=== PATIENT | female | born 1970 | race Caucasian/White ===

== ENCOUNTER → 2023-03-30 | Outpatient (CLI) | payer BC ==
--- NOTE | 2023-03-30 10:46 | US ---
EXAMINATION TYPE: US pelvis complete transvag DATE OF EXAM: 03/30/2023 COMPARISON: NONE CLINICAL INDICATION: Female, 52 years old with history of N95.0 POSTMENOPAUSAL BLEEDING; Pt states 5 days of heavy vaginal bleeding in February TECHNIQUE: Transvaginal (TV) and Transabdominal (TA) . Transabdominal sonographic images of the pel vis were acquired. Transvaginal sonographic images were medically necessary to better assess the fol lowing anatomy: Endometrium Date of LMP: Nov 2021 EXAM MEASUREMENTS: Uterus: 7.5 x 2.9 x 3.7 cm Endometrial Stripe: 0.5 cm Right Ovary: 2.0 x 1.3 x 2.0 cm Left Ovary: 1.9 x 1.4 x 2.1 cm 1. Uterus: Anteverted Heterogeneous 2. Endometrium: Upper limits of normal for thickness, Vague area within endo with vascular stalk= 0. 5 x 0.3 x 0.7 cm ?possible polyp 3. Right Ovary: Hypoechoic lesion= 1.5 x 0.9 x 1.2 cm 4. Left Ovary: wnl 5. Bilateral Adnexa: wnl 6. Posterior cul-de-sac: wnl IMPRESSION: 1. Cannot exclude endometrial polyp. 2. Uterine myometrial heterogeneity could reflect small leiomyomatous change. 3. Probable functional right ovarian cyst.
== END | disposition home or self-care (01) ==
LOC: RADUSWWP 10:01
PROVIDERS: ATTEND Family Medicine
DX: N95.0 Postmenopausal bleeding (principal)
CPT/HCPCS: 76830; 76856

== ENCOUNTER → 2024-03-04 | Outpatient (CLI) | payer BC ==
--- NOTE | 2024-03-08 09:26 | MM ---
Reason for Exam: Screening (asymptomatic). Patient History: Menarche at age 9. Patient has no children. Postmenopausal. Maternal aunt had ovarian cancer under age 50. Risk Values: Concha 5 year model risk: 1.3%. NCI Lifetime model risk: 10.3%. Tissue Density: There are scattered areas of fibroglandular density. Findings: Analyzed By CAD. Right breast: There is no suspicious group of microcalcifications or new suspicious mass. Left breast: There is no suspicious group of microcalcifications or new suspicious mass. Overall Assessment: Negative, BI-RAD 1 Management: Screening Mammogram of both breasts in [address] [facility] will attempt to contact patient to return for supplemental views and ultrasound if indicated. Patient should continue monthly self-breast exams. A clinical breast exam by your physician is recommended on an annual basis. This exam should not preclude additional follow-up of suspicious palpable abnormalities. Note on Concha scores and lifetime risk: 1. A Concha score greater than 3% is considered moderate risk. If this is the case, consider specialist referral to assess eligibility for a risk reducing agent. 2. If overall lifetime risk for the development of breast cancer is 20% or higher, the patient may qualify for future screening with alternating mammogram and breast MRI. Electronically signed and approved by: Flaquito Arteaga DO
== END | disposition home or self-care (01) ==
LOC: RADMAMWWP 10:12
PROVIDERS: ATTEND Family Medicine
DX: Z12.31 Encounter for screening mammogram for malignant neoplasm of breast (principal); Z78.0 Asymptomatic menopausal state
CPT/HCPCS: 77063; 77067